=== PATIENT | male | born 1940 | race Caucasian/White ===

== ENCOUNTER 2016-08-20 19:00 | Emergency (ER) | payer OTHER, MEDICARE ==
[~2016-08-20] VITALS: Ht 177.8 cm; Wt 92.3 kg
[~2016-08-20 19:00] MED LIST: ACET1TAB12 PO; ATOR20TA65 PO; CARV25TA2 PO; GABA600T2 PO; LEFL20TA18 PO; LEVO88TA4 PO; MAGN400T29 PO; ONDA4TAB9 PO; WARF2.5T8 PO
[2016-08-20 19:08] VITALS: BP 106/63; PULSE 53; RESP 16; O2SAT 97
--- NOTE | 2016-08-20 19:45 | ED.REPORT ---
HPI-General Illness Date of Service Aug 20, 2016 ED Provider: Chico Jacob MD 76 year old male with a history of AR, CAD, CHF, HTN, diabetes, and atrial fibrillation anticoagulated on warfarin presents to the ER accompanied by his sent from the cardiology clinic for INR>10. Vitamin K 2.5mg PO given in clinic. Dr. Sanchez, cardiology, consulted and states that he did not recommend patient be sent to the ER. Patient denies bleeding, melena, bloody stool, headache, vomiting, recent head trauma, and alcohol consumption. Nursing Notes Stated Complaint: ELEVATED PRO TIME Chief Complaint: General Complaint Nursing Notes Reviewed: Yes Allergies: Coded Allergies: tramadol (Verified Allergy, Intermediate, Hallucinations, 04/15/16) Scheduled Atorvastatin Calcium (Atorvastatin Calcium) 20 Mg Tablet 20 MG PO HS Carvedilol (Carvedilol) 25 Mg Tablet 25 MG PO BID Gabapentin (Gabapentin) 600 Mg Tablet 600 MG PO BID Levothyroxine (Levothyroxine) 88 Mcg Tablet 88 MCG PO DAILY Magnesium Oxide (Magox 400) 400 Mg Tablet 400 MG PO DAILY Warfarin Sodium (Jantoven) 2.5 Mg Tablet 2.5 MG PO DAILY Scheduled PRN Acetaminophen/Codeine 300-30mg (Tylenol/Codeine #3) 1 Each Tablet 1 EACH PO Q12 PRN PRN For Pain Ondansetron ODT (Zofran ODT) 4 Mg Tablet 4 MG PO Q4H PRN PRN For Nausea Miscellaneous Medications Leflunomide (Leflunomide) 20 Mg Tablet 20 MG PO General Time Seen by MD: 19:31 Chief Complaint Other (Elevated INR) Hx Obtained From: Patient Arrived By: Walk-in Sudden in Onset?: No Onset Occurred: Just prior to arrival Symptom Duration: Since onset Pertinent Negative: Pt denies other symptoms Context Related History: Reports Coronary artery disease, Reports Diabetes mellitus Past Medical History Past Medical History Coronary artery disease s/p PCI/GRADY mid LAD Chronic atrial fibrillation, anticoagulated on warfarin Ischemic cardiomyopathy, Chronic LBBB Congestive heart failure with EF of 20-25% on echo 10/24/2014. Outpatient care with Dr. Sanchez Hypothyroid Gout Psoriatic arthritis recently stopped his chronic steroid therapy Rash thought to be psoriasis, has not had biopsied Hypertension ONEAL, using CPAP Diabetes Mellitus, type 2 without any home medications Chronic systolic dysfunction Heart Failure with EF of 20-25% s/p Biventricular pacing Chronic LBBB AR 2012 Past Surgical History Defibrillator placed in 2009 ([employer] brand) Ablation and cardioversion x2 2012 Umbilical hernia repair Reports: Tonsillectomy Reports: Pacemaker insertion Smoking History Never Smoker Social History Alcohol Use: Denies alcohol use Drug Use: Denies drug use Other Social History: Review of Systems Full Review of Systems Constitutional: Denies: Chills, Fever Respiratory: Denies: Non-productive cough, Shortness of breath Cardiovascular: Denies: Chest pain GI: Denies: Hematemesis, Hematochezia, Melena, Nausea, Vomiting Musculoskeletal: Denies: Extremity pain, Neck pain Skin: Denies Diaphoresis Neurologic: Reports: Dizziness Complete sys rev & neg: except as marked. Physical Exam Vital Signs Vital Signs Date Time Temp Pulse Resp B/P Pulse Ox O2 Delivery O2 Flow Rate FiO2 08/20/16 20:40 63 19 119/55 96 Room Air 08/20/16 19:08 35.9 53 16 106/63 97 Room Air Initial VS: Reviewed General/Constitutional: Well-developed, Well-nourished Head / Eyes: Atraumatic, Normocephalic Neck: Supple, Non-tender, Full range of motion Abdomen / GI: Soft, Non-tender, No guarding, No rebound, No distention Extremities: Vascular intact, Neuro intact, No swelling, No tenderness Skin: Warm, Dry, No cyanosis Psychiatric: Mood/affect normal, Behavior normal, Normal thought content ENT: Airway patent Mouth: Positive: Mucous membranes dry Respiratory / Chest: Breath sounds NL, No respiratory distress, No rales, No rhonchi, No wheezing Cardiovascular: Heart rate NL, Regular rhythm, Heart sounds NL, Cap refill not delayed, Peripheral circulation NL Neurologic: Oriented X3, Speech NL, No motor deficits, No sensory deficits, CN II - XII intact, Cerebellar NL, Memory NL Re-Eval/Medical Decision Med Decision/Clinical Course 76 year old male with a history of AR, CAD, CHF, HTN, diabetes, and atrial fibrillation anticoagulated on warfarin presents to the ER accompanied by his sent from the cardiology clinic for INR>10. Vitamin K 2.5mg PO given in clinic. Dr. Sanchez, cardiology, consulted and states that he did not recommend patient be sent to the ER. Here in emergency department patient adamantly denies any symptoms of bleeding such as melena, bright red blood per rectum or hematoma formation. Patient is received oral vitamin K and have advised him to hold his Coumadin for the next 2 days. He has no evidence of active bleeding at this time I see no indication for admission or further workup. He will follow up with anticoagulation clinic. Follow-up and return precautions were reviewed in detail he was discharged in good condition. He has not started any new medications that would explain his elevation of INR. Time of Eval: 20:06 Re-Evaluation/Progress Note: Discussed plan to discharge. Patient is amenable to the plan. Return precautions given. All other questions addressed. Counseled Regarding: Diagnosis, Lab results, Need for follow-up, When/why to return to ED Discharge & Departure Primary Impression: Elevated INR Additional Impressions: Supratherapeutic INR At risk for bleeding Disposition: Home Discharge Condition All VS Reviewed: Yes Condition: Stable Additional Instructions: Thank you for seeking care at emergency room for your elevated INR. Our primary goal today in the ED was to evaluate you for any life-threatening conditions. Your evaluation was reassuring. Do not take your Coumadin over the weekend. Go to [facility] on Tuesday and have your INR rechecked. You should follow-up with your primary doctor this week. You should return to the ED immediately if you develop blood in your stool, black tarry stool, signs of bleeding, severe headache, chest pain, pain radiation into your neck/jaw or shoulder/arm, shortness of breath, nausea, sweating, or any other concerning signs or symptoms. Thank you for letting us partake in your care today. Referrals: Jerad Sanchez MD (PCP) Tracy Voss PA-C (Family) Diana Attestation Portions of this note were transcribed by Ambrose Wilson. I, Dr. Jacob, personally performed the history, physical exam and medical decision-making; I reviewed and confirmed the accuracy of the information in the transcribed note. Signed by: Diana Sam, 08/20/2016 and 20:08 copies to: Tracy Voss PA-C; Jerad Sanchez MD, Beck O MD Aug 20, 2016 19:45 AMBROSE WILSON Aug 20, 2016 19:49
[2016-08-20 20:40] VITALS: BP 119/55; PULSE 63; RESP 19; O2SAT 96
== END 2016-08-20 20:41 | disposition home or self-care (01) ==
LOC: SED 19:00
DX: R79.1 Abnormal coagulation profile (principal); I11.0 Hypertensive heart disease with heart failure; I50.9 Heart failure, unspecified; E11.59 Type 2 diabetes mellitus with other circulatory complications; I25.2 Old myocardial infarction; I48.91 Unspecified atrial fibrillation; I25.10 Atherosclerotic heart disease of native coronary artery without angina pectoris; Z95.0 Presence of cardiac pacemaker; Z79.01 Long term (current) use of anticoagulants; Z88.5 Allergy status to narcotic agent